=== PATIENT | female | born 1955 | race Caucasian/White ===

== ENCOUNTER → 2019-02-11 | Outpatient (CLI) | payer BC ==
--- NOTE | 2019-02-11 21:35 | Diagnostic Imaging Report ---
INDICATION: Right breast density described on outside mammogram. COMPARISON: Correlation is made with recent study from 01/07/2019. In addition, comparisons are made with prior mammograms from 10/08/2017 and 01/31/2015. EXAMINATION: Unilateral right 2D and 3D diagnostic mammography was performed. FINDINGS: Circumscribed nodular density in the upper outer right breast is noted at mid to posterior depth and consistent with intramammary lymph node. This has been present on prior mammograms dating back to 2014 and is consistent with an intramammary lymph node. No spiculated masses or malignant appearing microcalcifications are seen. Right axilla is unremarkable. IMPRESSION: No mammographic features suspicious for malignancy. ACR BI-RADS Category 2: Benign findings. Result letter will be mailed to the patient. Note: At least 10% of breast cancer is not imaged by mammography. Dictated by: Dictated on workstation # [id number]
== END ==
LOC: RAD 13:40
PROVIDERS: ATTEND Nurse Practitioner Family
DX: N60.11 Diffuse cystic mastopathy of right breast (principal)